=== PATIENT | female | born 1970 | race Caucasian/White ===

== ENCOUNTER 2017-06-01 11:13 | Emergency (ER) | payer MEDICARE, MEDICAID ==
[2017-06-01 11:36] VITALS: BP 129/69
--- NOTE | 2017-06-01 12:31 | UC ---
Knee Pain HPI - History of Current Complaint Chief Complaint: UCLowerExtremity Stated Complaint: LEFT LEG PAIN Time Seen by Provider: 06/01/17 12:24 Hx Obtained From: Patient Hx Last Menstrual Period: 05/19/17 Onset/Duration: Gradual Onset, Lasting Days - 1, Still Present Severity Initially: Mild Severity Currently: Mild - on/ off. Character: Aching Aggravating Factor(s): Weight Bearing Alleviating Factor(s): Rest Associated Signs And Symptoms: Positive: Negative Able to Bear Weight: Yes - Risk Factors Septic Arthritis Risk Factor: Negative Gout Risk Factor: Age ^ 42 - Allergies/Home Medications Allergies/Adverse Reactions: Allergies Allergy/AdvReac Type Severity Reaction Status Date / Time Bee Venom Allergy Severe Anaphylatic Verified 06/01/17 11:36 Shock Home Medications: Home Medications Ibuprofen TAB* [Motrin TAB* 600 MG] 600 mg PO Q8H PRN 06/01/17 [History Confirmed 06/01/17] PMH/Surg Hx/FS Hx/Imm Hx Previously Healthy: Yes - Surgical History Surgical History: Yes Surgery Procedure, Year, and Place: hernia - Family History Known Family History: Negative: Cardiac Disease, Hypertension, Diabetes - Social History Occupation: Employed Part-time Lives: Alone Alcohol Use: None Substance Use Type: None Smoking Status (MU): Never Smoked Tobacco Have You Smoked in the Last Year: No Review of Systems Musculoskeletal: Arthralgia - left knee All Other Systems Reviewed And Are Negative: Yes Physical Exam Triage Information Reviewed: Yes Appearance: Well-Appearing, No Pain Distress, Obese Vital Signs: Initial Vital Signs Temp 97.5 F 06/01/17 11:31 Pulse 87 06/01/17 11:31 Resp 17 06/01/17 11:31 BP 129/69 06/01/17 11:31 Pulse Ox 100 06/01/17 11:31 Vital Signs Reviewed: Yes Eyes: Positive: Conjunctiva Clear Neck exam: Normal Respiratory Exam: Normal Cardiovascular Exam: Normal Musculoskeletal: Positive: Other: - antalgic gait. Tender over the left pes anserine bursa. Negative homans. Neurological Exam: Normal Psychological Exam: Normal Skin Exam: Normal Knee Pain Course/Dx - Differential Dx/Diagnosis Differential Diagnosis/HQI/PQRI: Bursitis, Sprain, Strain Provider Diagnoses: Bursitis left knee, pes anserine Discharge - Discharge Plan Condition: Stable Disposition: HOME Patient Education Materials: Knee Bursitis (ED) Referrals: GERONIMO Mcdowell [Primary Care Provider] - 2 Weeks (Recheck on the knee pain and make sure that you are getting better.) Additional Instructions: You can make an appointment for physical therapy here at [facility].
== END 2017-06-01 12:42 | disposition home or self-care (01) ==
LOC: UCCORT 11:13
DX: M70.52 Other bursitis of knee, left knee (principal)
CPT/HCPCS: 99211; G0463

== ENCOUNTER 2017-06-19 16:29 | Emergency (ER) | payer MEDICARE, MEDICAID ==
[2017-06-19 16:47] VITALS: BP 133/57
--- NOTE | 2017-06-19 17:21 | UC ---
Knee Pain HPI - HPI Summary HPI Summary: 47 yo female with left knee pain x weeks saw Dr. Puga says it is getting better but still hurts says she will rechecked by her provider next week requests not for working only 4 hours a day because her knee gets worse when she stands all day - History of Current Complaint Chief Complaint: UCLowerExtremity Stated Complaint: NEEDS WORK NOTE Time Seen by Provider: 06/19/17 16:46 Hx Obtained From: Patient Hx Last Menstrual Period: last month Onset/Duration: Gradual Onset, Lasting Weeks Severity Initially: Moderate Severity Currently: Mild Pain Intensity: 3 Pain Scale Used: 0-10 Numeric Character: Dull, Aching Aggravating Factor(s): Movement, Weight Bearing Alleviating Factor(s): Rest Associated Signs And Symptoms: Positive: Negative Able to Bear Weight: Yes - Allergies/Home Medications Allergies/Adverse Reactions: Allergies Allergy/AdvReac Type Severity Reaction Status Date / Time Bee Venom Allergy Severe Anaphylatic Verified 06/19/17 16:43 Shock PMH/Surg Hx/FS Hx/Imm Hx Previously Healthy: Yes - Surgical History Surgical History: Yes Surgery Procedure, Year, and Place: hernia - Family History Known Family History: Negative: Cardiac Disease, Hypertension, Diabetes - Social History Alcohol Use: None Substance Use Type: None Smoking Status (MU): Never Smoked Tobacco Have You Smoked in the Last Year: No Review of Systems Constitutional: Negative Skin: Negative Eyes: Negative ENT: Negative Respiratory: Negative Cardiovascular: Negative Gastrointestinal: Negative Genitourinary: Negative Motor: Negative Neurovascular: Negative Musculoskeletal: Arthralgia Neurological: Negative Psychological: Negative All Other Systems Reviewed And Are Negative: Yes Physical Exam Triage Information Reviewed: Yes Appearance: Well-Appearing, No Pain Distress, Well-Nourished Vital Signs: Initial Vital Signs Temp 97.8 F 06/19/17 16:34 Pulse 98 06/19/17 16:34 Resp 18 06/19/17 16:34 BP 133/57 06/19/17 16:34 Vital Signs Reviewed: Yes Eyes: Positive: Conjunctiva Clear ENT: Positive: Hearing grossly normal. Negative: Nasal congestion, Nasal drainage, Trismus, Muffled/hoarse voice Neck: Positive: Supple, Nontender Respiratory: Positive: Lungs clear, Normal breath sounds, No respiratory distress, No accessory muscle use Cardiovascular: Positive: RRR, No Murmur, Pulses Normal Musculoskeletal: Positive: ROM Intact, No Edema, Other: - slight tenderness left lateral joint line Neurological: Positive: Alert Psychological Exam: Normal Skin Exam: Normal Knee Pain Course/Dx - Differential Dx/Diagnosis Provider Diagnoses: left knee pain of uncertain cause Discharge - Discharge Plan Condition: Stable Disposition: HOME Patient Education Materials: Knee Pain (ED) Forms: *Work Release Referrals: GERONIMO Mcdowell [Primary Care Provider] - As Soon As Possible
== END 2017-06-19 17:12 | disposition home or self-care (01) ==
LOC: UCCORT 16:29
DX: M25.562 Pain in left knee (principal); Z91.030 Bee allergy status
CPT/HCPCS: 99211; G0463

== ENCOUNTER 2019-08-07 15:02 | Emergency (ER) | payer MEDICARE, MEDICAID ==
[2019-08-07 15:34] VITALS: BP 157/91
--- NOTE | 2019-08-07 15:49 | UC ---
Respiratory Complaint HPI - HPI Summary HPI Summary: Pt presents with c/o worsening cough, nasal congestion, chills, fatigue, X 2 days. - History of Current Complaint Chief Complaint: UCGeneralIllness Stated Complaint: COUGH,RUNNY NOSE,SORE THROAT Time Seen by Provider: 08/07/19 15:42 Hx Obtained From: Patient Hx Last Menstrual Period: 04/29/18 ?: No Onset/Duration: Gradual Onset, Lasting Days, Still Present, Worse Since - onset Timing: Constant Severity Initially: Mild Severity Currently: Moderate Pain Intensity: 0 Character: Cough: Nonproductive Aggravating Factors: Deep Breaths, Recumbent Position Alleviating Factors: Nothing Associated Signs And Symptoms: Positive: URI, Nasal Congestion - Risk Factors Pulmonary Embolism Risk Factors: Negative Cardiac Risk Factors: Negative Pseudomonas Risk Factors: Negative Tuberculosis Risk Factors: Communal Living - Allergies/Home Medications Allergies/Adverse Reactions: Allergies Allergy/AdvReac Type Severity Reaction Status Date / Time bee venom protein (honey bee) Allergy Anaphylatic Verified 08/07/19 15:34 Shock Home Medications: Home Medications D-Methorphan/PE/Acetaminophen [Day Time Cold-Flu Liquid] 237 ml PO DAILY [History Confirmed 08/07/19] PMH/Surg Hx/FS Hx/Imm Hx Previously Healthy: Yes - Surgical History Surgical History: Yes Surgery Procedure, Year, and Place: hernia - Family History Known Family History: Negative: Cardiac Disease, Hypertension, Diabetes - Social History Occupation: Employed Full-time Lives: With Family Alcohol Use: None Substance Use Type: None Smoking Status (MU): Never Smoked Tobacco Have You Smoked in the Last Year: No - Immunization History Vaccination Up to Date: Yes Review of Systems All Other Systems Reviewed And Are Negative: Yes Constitutional: Positive: Chills, Fatigue Skin: Positive: Negative Eyes: Positive: Negative ENT: Positive: Sinus Congestion Respiratory: Positive: Cough Cardiovascular: Positive: Negative Gastrointestinal: Positive: Negative Genitourinary: Positive: Negative Motor: Positive: Negative Musculoskeletal: Positive: Myalgia Neurological: Positive: Negative Psychological: Positive: Negative Is Patient Immunocompromised?: No Physical Exam Triage Information Reviewed: Yes Appearance: Ill-Appearing Vital Signs: Initial Vital Signs Temp 98.3 F 08/07/19 15:29 Pulse 113 08/07/19 15:29 Resp 16 08/07/19 15:29 BP 157/91 08/07/19 15:29 Pulse Ox 98 08/07/19 15:29 Vital Signs Reviewed: Yes Eye Exam: Normal ENT: Positive: Nasal congestion, Sinus tenderness Dental Exam: Normal Neck exam: Normal Respiratory: Positive: Wheezing Cardiovascular: Positive: Tachycardia Musculoskeletal Exam: Normal Neurological Exam: Normal Psychological Exam: Normal Skin Exam: Normal Respiratory Course/Dx - Course Course Of Treatment: Discussed role of antibiotics and viral illness vs. bacterial infection and pt prefers to be on antibiotics. - Differential Dx/Diagnosis Differential Diagnosis/HQI/PQRI: Bronchitis, Influenza Provider Diagnosis: Bronchitis Discharge ED - Sign-Out/Discharge Documenting (check all that apply): Patient Departure All imaging exams completed and their final reports reviewed: No Studies - Discharge Plan Condition: Stable Disposition: HOME Prescriptions: Azithromycin TAB* [Zithromax TAB (Z-MOSHE) 250 mg #6 tabs] 2 tab PO .TODAY, THEN 1 DAILY #1 moshe Patient Education Materials: Acute Bronchitis (ED) Forms: *Gen. Provider Communication Referrals: Kerry Toro PA [Primary Care Provider] - If Needed Additional Instructions: Please follow up with your PCP as needed. - Billing Disposition and Condition Condition: STABLE Disposition: Home
== END 2019-08-07 16:00 | disposition home or self-care (01) ==
LOC: UCCORT 15:02
DX: J40 Bronchitis, not specified as acute or chronic (principal)
CPT/HCPCS: 99212; G0463

== ENCOUNTER 2019-08-13 10:57 | Emergency (ER) | payer MEDICARE, MEDICAID ==
[2019-08-13 11:17] VITALS: BP 118/34
--- NOTE | 2019-08-13 11:25 | UC ---
Lower Extremity/Ankle HPI - HPI Summary HPI Summary: pT PRESENTS WITH C/O sudden onset of left lower leg pain and tenderness. Pt denies recent or past injury or trauma. Denies hx of DVT or clotting disorder. Pt states that she stands for prolonged period of time at work. - History of Current Complaint Chief Complaint: UCLowerExtremity Stated Complaint: LEFT LEG PAIN Time Seen by Provider: 08/13/19 11:09 Hx Obtained From: Patient Hx Last Menstrual Period: 04/29/18 ?: No Onset/Duration: Sudden Onset, Lasting Hours, Still Present Severity Initially: Mild Severity Currently: Mild Pain Intensity: 3 Aggravating Factor(s): Other - palpation Alleviating Factor(s): Rest Able to Bear Weight: Yes - Risk Factors Gout Risk Factors: Age Over 40, Obesity DVT Risk Factors: Negative Septic Arthritis Risk Factor: Negative - Allergies/Home Medications Allergies/Adverse Reactions: Allergies Allergy/AdvReac Type Severity Reaction Status Date / Time bee venom protein (honey bee) Allergy Anaphylatic Verified 08/13/19 11:17 Shock Home Medications: Home Medications NK [No Home Medications Reported] 08/13/19 [History Confirmed 08/13/19] PMH/Surg Hx/FS Hx/Imm Hx Previously Healthy: Yes - Surgical History Surgical History: Yes Surgery Procedure, Year, and Place: hernia - Family History Known Family History: Negative: Cardiac Disease, Hypertension, Diabetes - Social History Occupation: Employed Full-time, Disabled Lives: With Family Alcohol Use: None Substance Use Type: None Smoking Status (MU): Never Smoked Tobacco Have You Smoked in the Last Year: No - Immunization History Vaccination Up to Date: Yes Review of Systems All Other Systems Reviewed And Are Negative: Yes Constitutional: Positive: Negative Skin: Positive: Negative Eyes: Positive: Negative ENT: Positive: Negative Respiratory: Positive: Negative Cardiovascular: Positive: Negative Gastrointestinal: Positive: Negative Genitourinary: Positive: Negative Motor: Positive: Negative Neurovascular: Positive: Negative Musculoskeletal: Positive: Myalgia Neurological: Positive: Negative Psychological: Positive: Negative Is Patient Immunocompromised?: No Physical Exam Triage Information Reviewed: Yes Appearance: Obese, Other: - unkempt Vital Signs: Initial Vital Signs Temp 97.5 F 08/13/19 11:11 Pulse 83 08/13/19 11:11 Resp 18 08/13/19 11:11 BP 118/34 08/13/19 11:11 Pulse Ox 100 08/13/19 11:11 Vital Signs Reviewed: Yes Eye Exam: Normal ENT: Positive: Hearing grossly normal Dental Exam: Normal Neck exam: Normal Respiratory: Positive: No respiratory distress Cardiovascular Exam: Normal Musculoskeletal: Positive: Other: - c/o pain with PE of left anterior and posterior lower extremity. No redstreaking or swelling appreciated on examination. Denies hx of DVT. Neurological Exam: Normal Neurological: Positive: Other: - pt has cognitive impairment Psychological Exam: Normal Skin Exam: Normal Lower Extremity Course/Dx - Course Course Of Treatment: I discussed with the pt the s/sx of DVT and the need to to go directly to the closest emergency room if her symptoms worsen. Pt verbalized understanding and agreed to plan of care. - Differential Dx/Diagnosis Differential Diagnosis/HQI/PQRI: DVT, Sprain, Strain, Tendonitis Provider Diagnosis: Pain of left calf Discharge ED - Sign-Out/Discharge Documenting (check all that apply): Patient Departure All imaging exams completed and their final reports reviewed: No Studies - Discharge Plan Condition: Stable Disposition: HOME Patient Education Materials: Safe Use of NSAIDs (ED), Leg Pain (ED) Referrals: Kerry Toro PA [Primary Care Provider] - If Needed Additional Instructions: PLEASE NOTE THAT IF THE PAIN IN YOUR LEG WORSENS OR IF YOU NOTICE SWELLING OR REDDENED AREA, PLEASE GO DIRECTLY TO THE CLOSEST EMERGENCY ROOM SOON POSSIBLE. - Billing Disposition and Condition Condition: STABLE Disposition: Home - Attestation Statements Provider Attestation: I was available for consult. This patient was seen by the [facility]. The patient was not presented to, seen by, or examined by me. Kvng Orantes MD
== END 2019-08-13 11:34 | disposition home or self-care (01) ==
LOC: UCCORT 10:57
DX: M79.662 Pain in left lower leg (principal)
CPT/HCPCS: 99211; G0463

== ENCOUNTER 2019-09-17 14:42 | Emergency (ER) | payer MEDICARE, MEDICAID ==
[2019-09-17 14:57] VITALS: BP 147/94
--- NOTE | 2019-09-17 15:00 | UC ---
Lower Extremity/Ankle HPI - HPI Summary HPI Summary: Patient is a 49yo female presenting with L knee pain of unknown period of time. Patient is relatively poor historian. Notes pain is "all around front and back of the knee." Notes worsening pain with sitting and standing. Rates pain 8/10 at all times and described it as sharp. 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 Denies specific injury or trauma. Denies numbness and tingling. Denies decreased sensation. Denies decreased ROM and strength. Denies difficulty ambulating. Denies redness and swelling. Denies SOB, difficulty breathing, and chest pain. Denies history of DVT. States she has had bursitis in the past. States she took ibuprofen this morning without relief. - History of Current Complaint Chief Complaint: UCLowerExtremity Stated Complaint: L LEG PAIN Hx Obtained From: Patient Hx Last Menstrual Period: 04/29/18 Pain Intensity: 0 - Allergies/Home Medications Allergies/Adverse Reactions: Allergies Allergy/AdvReac Type Severity Reaction Status Date / Time bee venom protein (honey bee) Allergy Anaphylatic Verified 09/17/19 14:53 Shock PMH/Surg Hx/FS Hx/Imm Hx - Surgical History Surgical History: Yes Surgery Procedure, Year, and Place: hernia - Family History Known Family History: Negative: Cardiac Disease, Hypertension, Diabetes - Social History Occupation: Employed Part-time Alcohol Use: None Substance Use Type: None Smoking Status (MU): Never Smoked Tobacco Have You Smoked in the Last Year: No - Immunization History Vaccination Up to Date: Yes Review of Systems All Other Systems Reviewed And Are Negative: Yes Constitutional: Positive: Negative. Negative: Fever, Chills Respiratory: Positive: Negative. Negative: Shortness Of Breath, Cough Cardiovascular: Positive: Negative. Negative: Palpitations, Chest Pain Musculoskeletal: Positive: Arthralgia. Negative: Calf Tenderness, Decreased ROM , Edema Neurological: Negative: Weakness, Paresthesia, Numbness Physical Exam Triage Information Reviewed: Yes Appearance: Well-Appearing, No Pain Distress, Well-Nourished Vital Signs: Initial Vital Signs Temp 97.3 F 09/17/19 14:54 Pulse 88 09/17/19 14:54 Resp 16 09/17/19 14:54 BP 147/94 09/17/19 14:54 Pulse Ox 100 09/17/19 14:54 Vital Signs Reviewed: Yes Eyes: Positive: Conjunctiva Clear ENT: Positive: Hearing grossly normal Neck: Positive: Supple Respiratory Exam: Normal Respiratory: Positive: Lungs clear, Normal breath sounds, No respiratory distress. Negative: Crackles, Rhonchi, Stridor, Wheezing Cardiovascular Exam: Normal Cardiovascular: Positive: RRR, Pulses Normal - normal popliteal pulses. normal pedal and ankle pulses Musculoskeletal Exam: Normal Musculoskeletal: Positive: Strength Intact, ROM Intact, No Edema, Other: - generalized tenderness to palpation of entire anterior and posterior L knee Neurological Exam: Other - sensation grossly intact Neurological: Positive: Alert Psychological: Positive: Other: - pressured speech Skin Exam: Normal - no erythema or ecchymosis Diagnostics - Radiology L knee Radiology Interpretation Completed By: Radiologist Summary of Radiographic Findings: IMPRESSION: MODERATE OSTEOARTHROPATHY OF THE MEDIAL LATERAL TIBIAL FEMORAL COMPARTMENTS. Lower Extremity Course/Dx - Course Course Of Treatment: Discussed osteoarthritis found on xrays with patient. Educated on s/s of DVT and to go to ED if they occur. Instructed to continue with symptomatic treatment and to follow up with PCP if knee pain persists. Patient voiced understanding and agreed with the treatment plan. - Differential Dx/Diagnosis Provider Diagnosis: Left knee pain Discharge ED - Sign-Out/Discharge Documenting (check all that apply): Patient Departure All imaging exams completed and their final reports reviewed: Yes - Discharge Plan Condition: Stable Disposition: HOME Patient Education Materials: Osteoarthritis (ED), Knee Pain (ED) Referrals: Kerry Toro PA [Primary Care Provider] - If Needed Additional Instructions: As discussed, the xrays of your knee showed osteoarthritis of your knee. No other abnormalities were found. Rest, ice, heat, and elevate to help alleviate pain symptoms. You may continue to take ibuprofen and/or tylenol as directed for pain relief. Refrain from strenuous physical activity that worsens your pain until pain has fully resolved. Follow up with your PCP if your pain persists. Go to the Emergency Room if you experience severe knee/leg pain or swelling and redness of the leg. - Billing Disposition and Condition Condition: STABLE Disposition: Home
== END 2019-09-17 16:00 | disposition home or self-care (01) ==
LOC: UCCORT 14:42
DX: M25.562 Pain in left knee (principal); M17.12 Unilateral primary osteoarthritis, left knee; Z91.030 Bee allergy status
CPT/HCPCS: 99211; G0463